=== PATIENT | male | born 1935 | race Caucasian/White ===

== ENCOUNTER 2019-02-25 08:20 | Day surgery (SDC) | payer OTHER, SELFPAY ==
--- NOTE | 2019-02-24 17:57 | POEE_ITS ---
History of Present Illness Chief Complaint: Progressive decreased vision, right eye Narrative: The patient is an 83-year-old male with history of progressive decreased vision in both eyes at both distance and near. On examination he was noted to have bilateral nuclear cortical and posterior subcapsular cataracts with visual acuity of 20/50 in each eye with significant glare disability. The option of cataract surgery was offered to patient and he wished to proceed. NOTE: The Chief Complaint, HPI, Past Medical History, Past Surgical History, Family History, Social History, Medications, and complete Ophthalmic Exam with detailed Assessment and Plan have already been documented in the patient's outpatient ophthalmic record and are not covered again in detail here. [facility] Medical History Arrhythmia (Acute) History of ischemic heart disease (Acute) Non-alcoholic fatty liver disease (Acute) Pre-diabetes (Acute) BPH (benign prostatic hyperplasia) (Chronic) Depression (Chronic) GERD (gastroesophageal reflux disease) (Chronic) HTN (hypertension) (Chronic) ESTELA (obstructive sleep apnea) (Chronic) Surgical History History of appendectomy (Chronic) History of colonoscopy (Chronic) Family History Mother Cancer Father Heart disease Social History Smoking/Tobacco Use Status: Never Alcohol Intake: current Alcohol Intake frequency: a few times a month Alcohol type: beer Drug use: Never Substance use type: does not use Do you feel safe at home: Yes Do you feel safe in your relationship?: Yes Meds Home Medications Medication Instructions Recorded Confirmed Type aspirin [Aspir-81] 81 mg PO DAILY 02/21/19 02/21/19 History metoprolol tartrate 12.5 mg PO BID 02/22/19 02/22/19 History sildenafil [Viagra] 100 mg PO DAILY PRN 02/22/19 02/22/19 History terazosin 6 mg PO QHS 02/22/19 02/22/19 History Allergies Allergy/AdvReac Type Severity Reaction Status Date / Time No Known Allergies Allergy Unverified 02/21/19 09:02 Exam OCULAR EXAM:: Most recent ocular examination is significant for uncorrected visual acuity of 20/50 in each eye. Intraocular pressure is 15 OD, 13 OS. Extraocular motility is normal. Pupils equal, round, and reactive without afferent pupillary defect slit-lamp examination is significant for pupils dilating to 4.5 mm OU. 2+ nuclear with 1+ cortical cataract OU with 1-2+ posterior subcapsular cataract. Funduscopic examination shows disc cupping of 0.55 OU with normal vessels. There is an epiretinal membrane in both maculas with trace pigmentary changes. 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 BRIGHTNESS ACUITY TESTING (BAT):: Brightness acuity testing of the right eye office is 20/50. On the low medium and high is 20/60. Assessment and Plan (1) Posterior subcapsular age-related cataract, right eye: Current visit: No Status: Acute Assessment: Visually significant cataract, right eye. Plan: Cataract extraction with intraocular lens implantation, right eye (2) Nuclear sclerotic cataract of right eye: Current visit: No Status: Acute Assessment: Visually significant cataract, right eye. Plan: Cataract extraction with intraocular lens implantation, right eye (3) Cortical cataract of right eye: Current visit: No Status: Acute Assessment: Visually significant cataract, right eye. Plan: Cataract extraction with intraocular lens implantation, right eye Note: NOTE:: The details of the planned surgery, including the risks, indications,limitations,expectations,outcome and possible complications were explained to the patient. The patient understands the complications including, but not limited to: infection, hemorrhage, posterior dislocation of the lens or nuclear fragments which may require the intervention of a vitreoretinal surgeon, possible loss of the eye, or from anesthetic complications. The patient has been made aware of the option of not having surgery, that vision following surgery may not be equal to that prior to surgery, and that the planned surgery may not achieve the intended results. Following this discussion, which the patient appeared to understand, the patient wishes to proceed with cataract surgery with lens implantation of the affected eye to improve and maximize vision.
[2019-02-25 08:48] VITALS: BP 143/86; PULSE 52; RESP 16; TEMP 36; O2SAT 95
[2019-02-25] MEDS: Tetracaine 0.5% 4 ML BTL OD ×4 (09:05→10:04)
[2019-02-25] MEDS: Tropicam./Phenyleph. (1/2.5%) 5 ML BTL OD ×3 (09:05→09:18)
[2019-02-25] MEDS: Povidone-Iodine Ophth 30 ML BTL ×2 (10:04→10:34)
[2019-02-25] MEDS: Lidocaine 2% Jelly 6 ML SYR (10:04)
[2019-02-25] MEDS: Balanced Salt Soln.-PLUS 500 ML BAG (10:11)
[2019-02-25] MEDS: Lidocaine 1% Pres-Free 5 ML VIAL (10:11)
--- NOTE | 2019-02-25 10:44 | W.PM.DSUDISC ---
Discharge Plan Disposition Patient Disposition: HOME Condition: Stable Discharge Details Attending Provider: Jeremiah Barclay Primary Care Provider: Janeth Alston Home Meds and New Rx's Prescriptions: No Action aspirin [Aspir-81] 81 mg Tablet,Delayed Release (Dr/Ec) 81 mg PO DAILY RF: 0 sildenafil [Viagra] 100 mg Tablet 100 mg PO DAILY PRNRF: 0 terazosin 2 mg Capsule 6 mg PO QHS RF: 0 metoprolol tartrate 25 mg Tablet 12.5 mg PO BID RF: 0 Discharge Instructions Stand Alone Forms: Post-op Topical Cataract, Fantasma Reynoso (DSU) Discharge Orders Discharge Orders: Discharge Order (Routine); Ordered 02/25/19 Ordered By: Jeremiah Barclay DS: Diagnosis Discharge Diagnosis (1) Posterior subcapsular age-related cataract, right eye: Status: Resolved (2) Nuclear sclerotic cataract of right eye: Status: Resolved (3) Cortical cataract of right eye: Status: Resolved (4) Status post cataract extraction and insertion of intraocular lens of right eye: Status: Chronic
--- NOTE | 2019-02-25 10:45 | W.PM.OP ---
Date of service: 02/25/19 Time of Service: 10:46 Operative Note PRE-OP DIAGNOSIS: Cataract, right eye, with poorly dilating pupil POST-OP DIAGNOSIS: same PROCEDURE: 1. Cataract extraction by phacoemulsification with intraocular lens implantation, right eye, with pupillary expansion device SURGEON: Jeremiah Barclay ANESTHESIA: MAC (with local sub-tenon's anesthetic injection) PATHOLOGY: none sent COMPLICATIONS: None Patient was transported to: same day Patient's condition: stable Implants: [employer] / [employer] Tecnis [id number] Indications: Progressive decreased vision due to cataract, right eye, with poorly dilating pupil Procedure Description: CATARACT SURGERY OPERATIVE REPORT PREOPERATIVE DIAGNOSIS: 1. Nuclear/cortical/posterior subcapsular cataract, right eye 2. Poorly dilating pupil, right eye POSTOPERATIVE DIAGNOSIS: Same OPERATION: 1. Cataract extraction using phacoemulsification with posterior chamber intraocular lens implant, right eye. 2. Pupillary dilation and iris stabilization using Malyugin Ring IOL: IOL Stock Sheets Cleaner Inspector/Model: [employer]ay [employer] Chay / CAMERON Tecnis [id number] IOL Power: + 20.50 diopters IOL Serial Number: [id number] Optic Diameter: 6.0mm Haptic/Overall Diameter: 13.0mm PHACO INFO: [facility] [employer] Vision System with OZil and Active [employer]uid[employer] Cumulative Dispersed Energy (CDE):8.66 seconds SURGEON: Jeremiah Barclay MD, DINAH ANESTHESIA: Monitored Anesthesia Care (MAC), with local sub-tenon's anesthetic infiltration COMPLICATIONS: None SPECIMENS: None INDICATIONS FOR PROCEDURE: The patient is an 83-year-old male with history of diminished visual acuity in both eyes secondary to the development of bilateral nuclear cortical and posterior subcapsular cataracts. He was significantly symptomatically he desired cataract surgery and attempt to improve and maximize his vision. PROCEDURE: The correct surgical eye was identified and marked as the right eye and the pupil was dilated in the preoperative area using mydriatics and cycloplegics. The dilated pupil size was 4.5 mm. Oral sedation was administered in the form of an Imprimis MKO Melt (midazolam 3mg/ketamine 25mg/ondansetron 2mg). The patient was brought to the operating room where cardiopulmonary monitoring was instituted and surgical time-out was performed, confirming the correct operative eye and IOL power. Topical anesthesia was administered and ophthalmic povidone-iodine 5% was instilled into the conjunctival fornices. Lidocaine gel was applied to the cornea and the jolene-ocular area was prepped with Betadine 10% solution and draped in the usual sterile fashion for intraocular surgery, including an aperture drape. A Tegaderm transparent film dressing was cut in half and used to cover the lashes and lid margins. Care was taken to sequester the lashes and lid margins under the Tegaderm dressing. A lid speculum was placed between the lids of the operative eye and the Tracy-Loli operating microscope was maneuvered into position. Jeanne scissors were then used to make a conjunctival buttonhole approximately 6mm posterior to the limbus in the inferonasal quadrant. Blunt dissection was carried out to expose bare sclera, and a blunt-tipped sub-tenon?s anesthesia cannula was introduced and passed posteriorly along the globe where non-preserved plain lidocaine was injected into posterior sub-Tenon?s space. A sideport knife was used to make a paracentesis port inferiortemporally. The anterior chamber was filled with Healon GV. A 2.4mm keratome knife was used to create a half-thickness groove at the limbus and then to construct a three-plane near-clear corneal tunnel extending 2.0mm into clear cornea superiortemporally. A 7.0 mm Malyugin Ring was then inserted into the pupillary space and engaged with the Kuglen hook. A flap was raised on the anterior capsule and capsulorhexis forceps were used to complete a continuous curvilinear capsulorhexis of 4.8 mm. Balanced salt solution was then used to perform cortical cleaving hydrodissection and nuclear hydrodelineation until the lens could be freely rotated within the capsular bag. The lens nucleus was then disassembled and removed within the capsular bag and iris plane using phacoemulsification. Residual cortical material was removed using the 45-degree angled silicone I/A tip with 0.3mm port. The posterior capsule was carefully polished to remove as much residual lens epithelial cells as safely possible. The capsular bag was then inflated and the anterior chamber deepened with viscoelastic. The lens implant described above was inserted into the capsular bag using the CAMERON [place] Injector. A Kuglen hook was used to dial the IOL into position. The Malyugin Ring was removed in the reverse order of its insertion. Residual viscoelastic was then removed first from posterior to the IOL, then from the anterior chamber using the I/A handpiece. The lens implant was noted to center nicely within the capsular bag. The incisions were stromally hydrated, and the anterior chamber was reformed using BSS. Then 0.4cc of moxifloxacin 1.5mg/ml were injected into the capsular bag and anterior chamber. The incisions were checked with a Weck spear and found to be secure. Several drops of ophthalmic povidone-iodine 5% were then applied to the eye followed by two drops of Imprimis combination prednisolone/gatifloxacin/bromfenac solution. The drapes were removed and a clear plastic protective eye shield was placed over the eye. The patient was then returned to [facility] Day Surgery in stable condition.
[2019-02-25 11:05] VITALS: BP 128/79; PULSE 60; RESP 14; TEMP 36.3; O2SAT 95
== END 2019-02-25 11:20 | disposition home or self-care (01) ==
PROVIDERS: PCP Student in an Organized Health Care Education/Training Program; Visit Provider Ophthalmology
PROC: (CPT 66982; principal; 2019-02-25 10:30)
DX: H25.811 Combined forms of age-related cataract, right eye (principal); H57.09 Other anomalies of pupillary function; I10 Essential (primary) hypertension; G47.33 Obstructive sleep apnea (adult) (pediatric)
CPT/HCPCS: 66982; V2632